=== PATIENT | female | born 1985 | race Caucasian/White ===

== ENCOUNTER → 2018-05-04 | Outpatient (CLI) | payer MEDICAID | LOC: FIMAGING 15:49 | PROVIDERS: ATTEND Psychiatry & Neurology Neurology | DX: Z09 Encounter for follow-up examination after completed treatment for conditions other than malignant neoplasm (principal); Z86.69 Personal history of other diseases of the nervous system and sense organs | CPT/HCPCS: 70551-PN ==

== ENCOUNTER → 2018-05-31 | Outpatient (CLI) | payer MEDICAID ==
--- NOTE | 2018-05-31 16:22 | CPEEG ---
[f rep st] ELECTROENCEPHALOGRAM FOUR-HOUR VIDEO EEG DATE OF STUDY: 05/31/2018 DATE OF INTERPRETATION: May 31, 2018. INTERPRETATION: This 4-hour video EEG recording is normal. There were no potentially epileptogenic abnormalities present in the awake or sleep recordings. The patient did not have any clinical events during the EEG monitoring session. REPORT: This 4-hour video EEG contains 10 Hz alpha activity in the posterior head regions. The back ground activity was normal and symmetric. There was no abnormal activation at rest, during photic st imulation or hyperventilation. The patient became drowsy and fell into sustained sleep during the st udy. There was no abnormal activation during drowsiness, sleep, or during times of arousal. The pat ient did not have any clinical events during the video EEG monitoring session. /[id number]/MODL
== END ==
LOC: FCPNEURO 08:25
PROVIDERS: ATTEND Psychiatry & Neurology Neurology
DX: Z86.69 Personal history of other diseases of the nervous system and sense organs (principal)